=== PATIENT | male | born 1945 | race Two or more races ===

== ENCOUNTER 2017-04-28 15:50 | Emergency (ER) | payer SELFPAY ==
[2017-04-28] MEDS ORDERED: SODIUM CHLORIDE 0.9% 1,000 ML IV ONE (17:13)
[2017-04-28] MEDS ORDERED: ACETAMINOPHEN 325 MG TABLET PO STA (17:30)
--- NOTE | 2017-04-28 17:30 | ED Physician Documentation ---
History of Present Illness - Stated complaint Stated Complaint: FEVER,BODY ACHES - Chief complaint Chief Complaint: Fever - History obtained from History obtained from: Patient, Family - History of Present Illness Timing: How many days ago (4) Pain level max: 7 Pain level now: 6 Improved by: nothing Worsened by: nothing - Additonal information Additional information: Patient is a 72-year-old male who has been sick for the past 4 days. Fevers, body aches, cough. No vomiting. No diarrhea. Has not taken anything. Did not have his flu shot this year Review of Systems Constitutional: reports: Fever Ears: denies: Ear pain Nose: reports: Rhinorrhea / runny nose, Congestion Throat: denies: Sore throat Cardiac: denies: Chest pain / pressure Respiratory: reports: Cough GI: denies: Vomiting, Diarrhea, Bloody / black stool Skin: denies: Rash Musculoskeletal: denies: Neck pain, Back pain Neurologic: denies: Headache PD PAST MEDICAL HISTORY - Past Medical History Past Medical History: No - Present Medications Home Medications: Ambulatory Orders Medication Instructions Recorded Confirmed No Known Home Medications [No 04/28/17 04/28/17 Known Home Medications] - Allergies Allergies/Adverse Reactions: Allergies Allergy/AdvReac Type Severity Reaction Status Date / Time No Known Drug Allergies Allergy Verified 04/28/17 17:17 - Social History Does the pt smoke?: No Smoking Status: Never smoker Does the pt drink ETOH?: No Does the pt have substance abuse?: No PD ED PE NORMAL - Vitals Vital signs reviewed: Yes - General General: Alert and oriented X 3, No acute distress, Well developed/nourished - HEENT HEENT: PERRL, Other (dry lips) - Neck Neck: Supple, no meningeal sign, No adenopathy - Cardiac Cardiac: RRR, Strong equal pulses - Respiratory Respiratory: No respiratory distress, Clear bilaterally - Abdomen Abdomen: Soft, Non tender, Non distended - Back Back: No CVA TTP, No spinal TTP - Derm Derm: Warm and dry, No rash - Extremities Extremities: No edema - Neuro Neuro: Alert and oriented X 3 - Psych Psych: Normal mood, Normal affect Results - Vitals Vitals: Vital Signs - 24 hr 04/28/17 04/28/17 16:00 18:32 Temperature 37 C 36.9 C Heart Rate 92 78 Respiratory 18 18 Rate Blood Pressure 145/113 H 154/107 H O2 Saturation 97 96 Oxygen O2 Source Room air - Labs Labs: Laboratory Tests 04/28/17 04/28/17 04/28/17 17:15 17:30 17:30 WBC 4.6 L RBC 5.07 Hgb 16.5 Hct 47.5 MCV 93.6 MCH 32.6 H MCHC 34.8 RDW 14.7 Plt Count 217 MPV 6.2 L Neut # 2.2 Lymph # 1.9 [place] # 0.4 Eos # 0.0 Baso # 0.0 Absolute Nucleated RBC 0.00 Nucleated RBC % 0.1 Sodium 133 L Potassium 3.7 Chloride 98 L Carbon Dioxide 23 Anion Gap 12.0 BUN 13 Creatinine 0.9 Estimated GFR (MDRD) 83 L Glucose 119 H Calcium 8.6 Total Bilirubin 0.4 AST 83 H ALT 86 H Alkaline Phosphatase 84 Total Protein 7.8 Albumin 3.9 Globulin 3.9 Albumin/Globulin Ratio 1.0 Lipase 43 Influenza A (Rapid) Negative Influenza B (Rapid) Negative Influenza Types A,B Ag - - Rads (name of study) cxr Radiology: Prelim report reviewed, EMP read contemporaneously, See rad report ( no acute disease) PD MEDICAL DECISION MAKING - ED course Complexity details: reviewed results, re-evaluated patient, considered differential, d/w patient, d/w family ED course: Patient is a 72-year-old male who presents to the emergency department what appears to be a viral syndrome. Influenza negative. No pneumonia on chest x- ray. Mildly elevated LFTs but no right upper quadrant tenderness. Tolerating p.o. without difficulty. Mild hyponatremia as well, feels much better after IV fluids. Tolerating p.o. without difficulty. Will continue supportive care and follow-up with his doctor. He is very well-appearing, nontoxic. Patient counseled regarding signs and symptoms for which I believe and urgent re- evaluation would be necessary. Patient with good understanding of and agreement to plan and is comfortable going home at this time This document was made in part using voice recognition software. While efforts are made to proofread this document, sound alike and grammatical errors may occur. Departure - Departure Disposition: 01 Home, Self Care Clinical Impression: Viral syndrome, Hyponatremia, Dehydration Condition: Good Instructions: ED Viral Syndrome Follow-Up: your,doctor in 3 days for repeat evaluation [Other] Print Language: Mohawk Comments: Return if you worsen. Drink plenty of fluids and rest. Discharge Date/Time: 04/28/17 19:09
[2017-04-28 17:41] LABS: BASOPHILS % (AUTO) 0.3 %; EOSINOPHILS % (AUTO) 0.5 %; HGB - HEMOGLOBIN 16.5 g/dL (14.0-18.0); LYMPHOCYTES # (AUTO) 1.9 10^3/uL (1.5-3.5); LYMPHOCYTES % (AUTO) 40.8 %; MEAN CORPUSCULAR HEMOGLOBIN 32.6 pg (27.0-31.0); MEAN CORPUSCULAR HGB CONC 34.8 g/dL (32.0-36.0); MEAN CORPUSCULAR VOLUME 93.6 fL (80.0-94.0); MEAN PLATELET VOLUME 6.2 fL (7.4-11.4); MONOCYTES # (AUTO) 0.4 10^3/uL (0.0-1.0); MONOCYTES % (AUTO) 9.6 %; NEUTROPHILS # (AUTO) 2.2 10^3/uL (1.5-6.6); NEUTROPHILS % (AUTO) 48.8 %; PLT - PLATELET COUNT 217 10^3/uL (130-450); RED BLOOD COUNT 5.07 10^6/uL (4.70-6.10); RED CELL DISTRIBUTION WIDTH 14.7 % (12.0-15.0); WHITE BLOOD COUNT 4.6 x10^3/uL (4.8-10.8)
[2017-04-28 17:49] LABS: ALBUMIN 3.9 g/dL (3.2-5.5); BILIRUBIN,TOTAL 0.4 mg/dL (0.2-1.0); CALCIUM 8.6 mg/dL (8.5-10.3); CREATININE 0.9 mg/dL (0.6-1.2); TOTAL PROTEIN 7.8 g/dL (6.7-8.2)
--- NOTE | 2017-04-28 18:13 | XRAY Report ---
EXAM: CHEST RADIOGRAPHY EXAM DATE: 04/28/2017 05:56 PM. CLINICAL HISTORY: Cough and malaise. COMPARISON: None. TECHNIQUE: 2 views. FINDINGS: Lungs/Pleura: No focal opacities evident. No pleural effusion. No pneumothorax. Normal volumes. Mediastinum: Heart and mediastinal contours are unremarkable. Other: None. IMPRESSION: Normal 2-view chest radiography. [facility] Referring Provider Line: [phone] SITE ID: [id number]
[2017-04-28 18:32] VITALS: BP 154/107
== END 2017-04-28 19:09 | disposition home or self-care (01) ==
LOC: ED 15:50
DX: E86.0 Dehydration (principal); B34.9 Viral infection, unspecified; E87.1 Hypo-osmolality and hyponatremia
CPT/HCPCS: 36415; 71046; 80053; 83690; 85025; 87275; 87276; 96360; 99283; A9270